=== PATIENT | female | born 1985 | race African-American/Black ===

== ENCOUNTER 2020-03-11 11:06 | Emergency (ER) | payer MEDICAID ==
[~2020-03-11] VITALS: Ht 157.5 cm; Wt 62.0 kg
[2020-03-11] MEDS ORDERED: CEFTRIAXONE SODIUM 250 MG/VIAL IM NR (11:45)
[2020-03-11] MEDS ORDERED: AZITHROMYCIN 500 MG TABLET PO NR (11:45)
[2020-03-11] MEDS ORDERED: ONDANSETRON 4MG ODT PO NR (11:45)
[2020-03-11] MEDS ORDERED: LIDOCAINE HCL/PF 1% 10 MG/ML 5ML VIAL IJ NR (11:45)
[2020-03-11 12:16] LABS: CLARITY URINE CLEAR (CLEAR); COLOR URINE YELLOW (YELLOW); KETONES URINE 1+ (NEGATIVE); LEUKOCYTE ESTERASE URINE NEGATIVE (NEGATIVE); NITRITE URINE NEGATIVE (NEGATIVE); OCCULT BLOOD URINE 2+ (NEGATIVE); PH URINE 6.5 (4.5-8.0); PROTEIN URINE TRACE (NEGATIVE); SPECIFIC GRAVITY URINE 1.015 (1.005-1.030)
[2020-03-11 13:00] VITALS: BP 121/72
[2020-03-13 05:09] LABS: NEISSERIA GONORRHOEAE NAA Negative (Negative)
== END 2020-03-11 13:05 | disposition home or self-care (01) ==
LOC: ER 11:06
DX: N76.0 Acute vaginitis (principal); Z11.3 Encounter for screening for infections with a predominantly sexual mode of transmission
CPT/HCPCS: 81003; 81025; 87210; 87491; 87591; 90471; 99284; J0696; J3490; Q0162